=== PATIENT | female | born 1970 | race Caucasian/White ===

== ENCOUNTER 2016-11-13 13:10 | Emergency (ER) | payer OTHER ==
[~2016-11-13] VITALS: Ht 160 cm; Wt 90.7 kg
== END 2016-11-13 14:55 | disposition home or self-care (01) ==
LOC: ED 13:10
DX: R55 Syncope and collapse (principal); Z88.0 Allergy status to penicillin; Z88.5 Allergy status to narcotic agent
CPT/HCPCS: 70450; 80048; 85025; 99284

== ENCOUNTER 2018-05-21 14:32 | Emergency (ER) | payer OTHER ==
[~2018-05-21] VITALS: Ht 160 cm; Wt 90.7 kg
== END 2018-05-21 14:52 | disposition home or self-care (01) ==
LOC: ED 14:32
DX: R82.90 Unspecified abnormal findings in urine (principal)

== ENCOUNTER 2018-08-03 10:57 | Emergency (ER) | payer OTHER ==
[~2018-08-03] VITALS: Ht 160 cm; Wt 90.7 kg
--- OUTSIDE RECORDS SUMMARY | ~2018-08-03 | XMS | Clinical Summary ---
Demographics + + + | Address | [address] | | | [place] [address] | + + + | Home Phone | | + + + | Preferred Language | Unknown | + + + | Marital Status | | + + + | Advent Affiliation | 1013 | + + + | Race | Unknown | + + + | Ethnic Group | Unknown | + + + Author + + + | Author | [facility] | | | and [place] | + + + | Organization | [facility] | | | and [place] | + + + | Address | Unknown | + + + | Phone | Unavailable | + + + Support + + + + + | Name | Relationship | Address | Phone | + + + + + | Leander Ellison | ECON | [address] | | | | | [place] [address] | | + + + + + Care Team Providers + +------+ + | Care Plastic Parts Fabricator Trimmer Name | Role | Phone | + +------+ + | Carlene Miles NP | PP | | + +------+ + Allergies + + + + + + | Active Allergy | Reactions | Severity | Noted | Comments | | | | | Date | | + + + + + + | Codeine | Other (See Comments) | High | 10/23/19 | faint | | | | | 14 | | + + + + + + | Penicillins | Rash | Low | 10/23/19 | | | | | | 14 | | + + + + + + Medications + + + +---------+------+------+-------+ | Medication | Sig | Dispensed | Refills | Star | End | Statu | | | | | | t | Date | s | | | | | | Date | | | + + + +---------+------+------+-------+ | albuterol | Inhale 2 puffs into | | 0 | | | Activ | | (VENTOLIN HFA) 90 | the lungs every 6 | | | | | e | | mcg/puff inhaler | hours as needed. | | | | | | + + + +---------+------+------+-------+ | estrogens, | Take 0.3 mg by mouth | | 0 | | | Activ | | conjugated, | Daily. | | | | | e | | (PREMARIN) 0.3 mg | | | | | | | | tablet | | | | | | | + + + +---------+------+------+-------+ | traMADol (ULTRAM) | Take 1 tablet by | 20 | 0 | 02/2 | | Activ | | 50 mg tablet | mouth every 6 hours | tablet | | 2/20 | | e | | | as needed for Pain. | | | 17 | | | + + + +---------+------+------+-------+ | naproxen | Take 250 mg by mouth | | 0 | | | Activ | | (NAPROSYN) 250 mg | 2 times daily (with | | | | | e | | tablet | breakfast & | | | | | | | | dinner). | | | | | | + + + +---------+------+------+-------+ | ibuprofen (ADVIL, | Take 400 mg by mouth | | 0 | | | Activ | | MOTRIN) 200 mg | every 6 hours as | | | | | e | | tablet | needed for Pain. | | | | | | + + + +---------+------+------+-------+ | benzonatate | Take 200 mg by mouth | | 0 | | | Activ | | (TESSALON) 200 MG | 3 times daily as | | | | | e | | capsule | needed for Cough. | | | | | | + + + +---------+------+------+-------+ Active Problems Not on file Social History + + + +--------+ + | Tobacco Use | Types | Packs/Day | Years | Date | | | | | Used | | + + + +--------+ + | Former Smoker | Cigarettes | 0.5 | | Quit: 04/18/2016 | + + + +--------+ + + +---+---+---+ | Smokeless Tobacco: | | | | | Never Used | | | | + +---+---+---+ + + +---------+ + | Alcohol Use | Drinks/We | oz/Week | Comments | | | ek | | | + + +---------+ + | Yes | | | | + + +---------+ + + + + | Sex Assigned at | Date Recorded | | | | + + + | Not on file | | + + + + + + + | Job Start Date | Occupation | Industry | + + + + | Not on file | Not on file | Not on file | + + + + + + + + | Travel History | Travel Start | Travel End | + + + + + + | No recent travel history available. | + + Last Filed Vital Signs + + + + | Vital Sign | Reading | Time Taken | + + + + | Blood Pressure | 152/83 | 06/17/2016548 PST | + + + + | Pulse | 80 | 06/17/2016548 PST | + + + + | Temperature | 36.6 C (97.8 F) | 06/17/2016545 PST | + + + + | Respiratory Rate | 16 | 06/17/2016545 PST | + + + + | Oxygen Saturation | 99% | 06/17/2016548 PST | + + + + | Inhaled Oxygen | - | - | | Concentration | | | + + + + | Weight | 90.7 kg (200 lb) | 06/17/2016545 PST | + + + + | Height | 160 cm (5' 3") | 06/17/2016545 PST | + + + + | Body Mass Index | 35.43 | 06/17/2016 0546 PST | + + + + Plan of Treatment + + + + + | Health Maintenance | Due Date | Last Done | Comments | + + + + + | Vaccine: | | | | | Dtap/Tdap/Td (1 - | 8 | | | | Tdap) | | | | + + + + + | Vaccine: Zoster (1 | | | | | of 2) | 9 | | | + + + + + | Vaccine: Influenza | | | | | (Season Ended) | 9 | | | + + + + + Results Not on filefrom Last 3 Months Insurance + +--------+ +--------+ +---------+--------+ | Payer | Benefi | Subscriber | Effect | Phone | Address | Type | | | t Plan | ID | javier | | | | | | / | | Dates | | | | | | Group | | | | | | + +--------+ +--------+ +---------+--------+ | [place] | MEDICA | [id number] | | [phone] | | Med[place] | | | [place] | | 016-Pr | 2 | | id | | | PLUS | | esent | | | | + +--------+ +--------+ +---------+--------+ + +--------+ +--------+ + + | Guarantor Name | Accoun | Relation to | Date | Phone | Billing Address | | | t Type | Patient | of | | | | | | | | | | + +--------+ +--------+ + + | Ellison | Person | Self | [birth year] | | [address] | | [place] | [place]onal[place] | | 1971 | [phone] | [place] [address] | | | vincent | | | 5 (Home) | | + +--------+ +--------+ + + Advance Directives Patient has advance care planning documents on file. For more information, please contact:[facility] [place] [address]
--- OUTSIDE RECORDS SUMMARY | ~2018-08-03 | XMS | Clinical Summary ---
Demographics + + + | Address | [address] | | | [place] [address] | + + + | Home Phone | | + + + | Preferred Language | Unknown | + + + | Marital Status | Single | + + + | Church Affiliation | Unknown | + + + | Race | Unknown | + + + | Ethnic Group | Other Race | + + + Author + + + | Author | [facility] | + + + | Organization | [facility] | + + + | Address | Unknown | + + + | Phone | Unavailable | + + + Care Team Providers + +------+ + | Care Can Stacker Name | Role | Phone | + +------+ + PP | Unavailable | + +------+ + Source Comments CRISTAL is fully live on both [facility] Ambulatory and [facility] InPatient.[facility] Allergies Not on File Current Medications Not on file Active Problems Not on file Social History + +-------+ +--------+------+ | Tobacco Use | Types | Packs/Day | Years | Date | | | | | Used | | + +-------+ +--------+------+ | Never Assessed | | | | | + +-------+ +--------+------+ + + + | Sex Assigned at | Date Recorded | | | | + + + | Not on file | | + + + Plan of Treatment + + + + + | Health Maintenance | Due Date | Last Done | Comments | + + + + + | Influenza (Flu) | | | | | vaccination (#1) | 8 | | | + + + + + Results Not on filefrom Last 3 Months Insurance + +--------+ +------+-------+---------+ | Payer | Benefi | Subscriber | Type | Phone | Address | | | t Plan | ID | | | | | | / | | | | | | | Group | | | | | + +--------+ +------+-------+---------+ | [employer] | PROVID | [id number] | PPO | | | | | ENCE | | | | | | | PREF | | | | | + +--------+ +------+-------+---------+ + +--------+ +--------+ + + | Guarantor Name | Accoun | Relation to | Date | Phone | Billing Address | | | t Type | Patient | of | | | | | | | | | | + +--------+ +--------+ + + | TAVERAS,JULY K | Person | Self | [birth year] | Home: | [address] | | | al/Fam | | 1971 | [phone] | [place] [address] | | | vincent | | | [phone] | | + +--------+ +--------+ + +"
--- OUTSIDE RECORDS SUMMARY | ~2018-08-03 | XMS | Clinical Summary ---
Demographics + + + | Address | [address] | | | [place] [address] | + + + | Home Phone | | + + + | Preferred Language | Unknown | + + + | Marital Status | | + + + | Latter Day Affiliation | 1013 | + + + | Race | Unknown | + + + | Ethnic Group | Unknown | + + + Author + + + | Author | [facility] | | | and [place] | + + + | Organization | [facility] | | | and [place] | + + + | Address | Unknown | + + + | Phone | Unavailable | + + + Support + + + + + | Name | Relationship | Address | Phone | + + + + + | Leander Ellison | ECON | [address] | | | | | [place] [address] | | + + + + + Care Team Providers + +------+ + | Care Expert Witness Name | Role | Phone | + [...] +---------+--------+ | [place] | MEDICA | [id number] | | [phone] | | Medica | [...] [place] | el[place]onal[place] | | 1971 | [phone] | [place] [address] | | | vincent | | | 5 (Home) | | + +--------+ +--------+ + + Advance Directives Patient has advance care planning documents on file. For more information, please contact:[facility] [place] [address]
--- OUTSIDE RECORDS SUMMARY | ~2018-08-03 | XMS | Clinical Summary ---
Demographics + + + | Address | [address] | | | [place] [address] | + + + | Home Phone | | + + + | Preferred Language | Unknown | + + + | Marital Status | Single | + + + | Voodoo Affiliation | Unknown | + + + | Race | Unknown | + + + | Ethnic Group | Other Race | + + + Author + + + | Author | [facility] | + + + | Organization | [facility] | + + + | Address | Unknown | + + + | Phone | Unavailable | + + + Care Team Providers + +------+ + | Care Director Government Name | Role | Phone | + +------+ + PP | Unavailable | + +------+ + Source Comments CRISTAL is fully live on both [facility] Ambulatory and [facility] InPatient.[facility] Allergies Not on File Current Medications Not [...] | 1971 | [phone] | [place] [address] | | | vincent | | | [phone] | | + +--------+ +--------+ + +"
[2018-08-03] MEDS ORDERED: PSEUDOEPHEDRIN120 MG PO (11:56)
== END 2018-08-03 12:11 | disposition home or self-care (01) ==
LOC: ED 10:57
DX: J02.9 Acute pharyngitis, unspecified (principal); J32.9 Chronic sinusitis, unspecified; I10 Essential (primary) hypertension; F17.200 Nicotine dependence, unspecified, uncomplicated; Z88.0 Allergy status to penicillin; Z88.5 Allergy status to narcotic agent
CPT/HCPCS: 87081; 87880; 99283; 99406

== ENCOUNTER 2022-05-20 00:36 | Emergency (ER) | payer OTHER ==
[~2022-05-20] VITALS: Ht 160 cm; Wt 110.1 kg
[~2022-05-20 00:36] MED LIST: PSEUDOEPHEDRIN120 MG PO
[2022-05-20] MEDS ORDERED: FLUOXETINE HCL20 M1 PO (00:48)
== END 2022-05-20 02:50 | disposition home or self-care (01) ==
LOC: ED 00:36
PROC: 093K7ZZ Control Bleeding in Nasal Mucosa and Soft Tissue, Via Natural or Artificial Opening (ICD-10-PCS; principal; 2022-05-20)
DX: R04.0 Epistaxis (principal); I10 Essential (primary) hypertension; F17.200 Nicotine dependence, unspecified, uncomplicated; Z88.0 Allergy status to penicillin; Z88.5 Allergy status to narcotic agent; Z79.899 Other long term (current) drug therapy
CPT/HCPCS: 30901; 36415; 80053; 85025; 85610; 85730; 99283-25